=== PATIENT | male | born 1965 | race American Indian/Alaskan Native ===

== ENCOUNTER 2018-12-06 22:18 | Emergency (ER) | payer SELFPAY ==
--- NOTE | 2018-12-06 22:50 | C.PDOC ---
History Of Present Illness 53 y/o M c PMHx HTN p/w HTN. Patient brought with police for medical clearance for incarceration because patient informed CO that he has a history of high blood pressure. Patient denies taking medication and he denies headache, vomiting, vision change, chest pain, dyspnea, nausea, vomiting, hematuria. Time Seen by Provider: 12/06/18 22:36 Chief Complaint (Nursing): Medical Clearance Past Medical History Vital Signs: Last Vital Signs Temp 98.5 F 12/06/18 22:26 Pulse 63 12/06/18 22:26 Resp 18 12/06/18 22:26 BP 232/148 H 12/06/18 22:26 Pulse Ox 99 12/06/18 22:26 - Medical History PMH: HTN Family History: States: No Known Family Hx - Social History Hx Alcohol Use: No Hx Substance Use: No Review Of Systems Except As Marked, All Systems Reviewed And Found Negative. Constitutional: Negative for: Fever Cardiovascular: Negative for: Chest Pain Respiratory: Negative for: Shortness of Breath Physical Exam - Physical Exam Additional Physical Exam Comments: Gen: NAD Head: NC/AT Eyes: PERRL ENT: MMM Neck: Supple CV: Regular rate Lungs: CTA b/l Abd: Soft, NT Skin: No rash Neuro: Alert Extremities: No deformity ED Course And Treatment O2 Sat by Pulse Oximetry: 99 Medical Decision Making Medical Decision Making: Asymptomatic hypertension. Counseled on chronic hypertension management. Disposition - Disposition Disposition: HOME/ ROUTINE Disposition Time: 22:50 Condition: STABLE Additional Instructions: Lucien Newell is medically clear for incarceration. Instructions: High Blood Pressure in Adults Forms: [facility] (Georgian) - Clinical Impression Clinical Impression: Hypertension
[2018-12-06 23:08] VITALS: BP 189/125; PULSE 74; RESP 16; TEMP 98.4
[2018-12-06 23:14] VITALS: O2SAT 99
== END 2018-12-06 23:10 ==
LOC: C.ER 22:18
DX: I10 Essential (primary) hypertension (principal)